=== PATIENT | male | born 1975 | race Caucasian/White ===

== ENCOUNTER 2023-11-29 18:28 | Emergency (ER) | payer BC, MEDICAID ==
[~2023-11-29] VITALS: Ht 162.6 cm; Wt 64.0 kg
[2023-11-29 18:29] VITALS: O2SAT 100
[2023-11-29 18:45] VITALS: PULSE 99; RESP 19
[2023-11-29 20:30] VITALS: PULSE 100; RESP 20
[2023-11-29 22:16] VITALS: PULSE 84; RESP 18
[2023-11-30 00:05] VITALS: BP 114/66; TEMP 98.4
[2023-11-30 01:00] VITALS: PULSE 87; RESP 18
== END 2023-11-30 01:42 | disposition home or self-care (01) ==
LOC: ER 18:28
DX: R33.9 Retention of urine, unspecified (principal)
CPT/HCPCS: 51702; 94003; 99285